=== PATIENT | female | born 1990 | race Caucasian/White ===

== ENCOUNTER 2016-10-28 22:07 | Emergency (ER) | payer MEDICAID ==
[2016-10-28] MEDS ORDERED: Sodium Chloride 0.9% 1,000 ML IV ONE (22:36)
[2016-10-28] MEDS ORDERED: Ondansetron 4 MG/2 ML SDV IVPUSH ONE (22:36)
[2016-10-28] MEDS ORDERED: Ketorolac 30 MG/ML SDV IVPUSH ONE (22:37)
--- NOTE | 2016-10-28 22:37 | EDM.PDOC ---
ED HPI GENERAL MEDICAL PROBLEM - General Chief Complaint: Abdominal Pain Stated Complaint: GALLBLADDER ISSUES Time Seen by Provider: 10/28/16 22:36 Source of Information: Reports: Patient - History of Present Illness INITIAL COMMENTS - FREE TEXT/NARRATIVE: HISTORY AND PHYSICAL: History of present illness: []Patient has a history of biliary colic and cholelithiasis over the last 3 years waxing and waning first diagnosed while she was hence she did not have the procedure performed she was intermittently not having symptoms after and elected to forego procedure. In the interim she has been off and on insurances and has elected to not go forward with procedure/cholecystectomy due to financial. Currently she is unaware of her insurance status she thinks she may be just about get on insurance and may even be covered at this time however she is having some right upper quadrant pain nausea she rates 7 out of 10 sometimes radiating between to back and epigastrium No fever vomiting chills sweats no chest pain shortness breath headache dizziness palpitation no bowel or urine symptoms Review of systems: As per history of present illness and below otherwise all systems reviewed and negative. Past medical history: As per history of present illness and as reviewed below otherwise noncontributory. Surgical history: As per history of present illness and as reviewed below otherwise noncontributory. Social history: No reported history of drug or alcohol abuse. Family history: As per history of present illness and as reviewed below otherwise noncontributory. Physical exam: HEENT: Atraumatic, normocephalic, pupils reactive, negative for conjunctival pallor or scleral icterus, mucous membranes moist, throat clear, neck supple, nontender, trachea midline. Lungs: Clear to auscultation, breath sounds equal bilaterally, chest nontender. Heart: S1S2, regular, negative for clicks, rubs, or JVD. Abdomen: Soft, nondistended, nontender on the left on right she is tender with deep palpation both right upper and lower quadrant no guarding or rebound. Negative for masses or hepatosplenomegaly. Negative for costovertebral tenderness. Pelvis: Stable nontender. Genitourinary: Deferred. Rectal: Deferred. Extremities: Atraumatic, negative for cords or calf pain. Neurovascular unremarkable. Neuro: Awake, alert, oriented. Cranial nerves II through XII unremarkable. Cerebellum unremarkable. Motor and sensory unremarkable throughout. Exam nonfocal. Diagnostics: []Lab as below CT abdomen pelvis with contrast Patient refused ultrasound of was considered per radiology recommendation to rule out a hydrosalpinx Therapeutics: []1 L normal saline bolus Zofran 8 mg IV Toradol 30 mg IV Morphine 2 mg IV [place] 5 per 325 one by mouth every 6 when necessary #30 no refill Zofran 8 mg ODT every 8 when necessary nausea vomiting Patient refused ultrasound a real out hydrosalpinx per radiology recommendation Follow-up with general surgery Impression: []Biliary colic Cholelithiasis Definitive disposition and diagnosis as appropriate pending reevaluation and review of above. abdominal Pain Score (Numeric/FACES): 8 - Related Data Allergies Allergy/AdvReac Type Severity Reaction Status Date / Time No Known Allergies Allergy Verified 10/28/16 22:34 Home Meds: Home Meds . [No Known Home Meds] 10/28/16 [History] ED ROS GENERAL - Review of Systems Review Of Systems: ROS reveals no pertinent complaints other than HPI. ED EXAM, GENERAL - Physical Exam Exam: See Below Course - Vital Signs Last Recorded V/S: Last Vital Signs Temp 36.6 C 10/28/16 22:35 Pulse 67 10/28/16 22:35 Resp 18 10/28/16 22:35 BP 117/80 10/28/16 22:35 Pulse Ox 96 10/28/16 22:35 - Orders/Labs/Meds Orders: Active Orders 24 hr Category Date Time Status Abdomen Pelvis w Cont [CT] Stat Exams 10/28/16 22:54 Taken Labs: Laboratory Tests 10/28/16 10/28/16 10/28/16 Range/Units 22:41 22:41 22:50 WBC 9.41 (4.0-11.0) K/uL RBC 4.92 (4.30-5.90) M/uL Hgb 14.1 (12.0-16.0) g/dL Hct 40.8 (36.0-46.0) % MCV 82.9 (80.0-98.0) fL MCH 28.7 (27.0-32.0) pg MCHC 34.6 (31.0-37.0) g/dL RDW Std Deviation 39.7 (28.0-62.0) fl RDW Coeff of Marleni 13 (11.0-15.0) % Plt Count 246 (150-400) K/uL MPV 9.90 (7.40-12.00) fL Neut % (Auto) 54.6 (48.0-80.0) % Lymph % (Auto) 38.0 (16.0-40.0) % [place] % (Auto) 5.5 (0.0-15.0) % Eos % (Auto) 1.7 (0.0-7.0) % Baso % (Auto) 0.2 (0.0-1.5) % Neut # (Auto) 5.1 (1.4-5.7) K/uL Lymph # (Auto) 3.6 H (0.6-2.4) K/uL [place] # (Auto) 0.5 (0.0-0.8) K/uL Eos # (Auto) 0.2 (0.0-0.7) K/uL Baso # (Auto) 0.0 (0.0-0.1) K/uL Nucleated RBC % 0.0 /100WBC Nucleated RBCs # 0 K/uL Sodium (136-146) mmol/L Potassium (3.5-5.1) mmol/L Chloride (98-110) mmol/L Carbon Dioxide (21-31) mmol/L BUN (6.0-23.0) mg/dL Creatinine (0.6-1.5) mg/dL Est Cr Clr Drug Dosing mL/min Estimated GFR (MDRD) ml/min Glucose (60-110) mg/dL Calcium (8.8-10.8) mg/dL Total Bilirubin (0.1-1.5) mg/dL AST (5-40) IU/L ALT (8-54) IU/L Alkaline Phosphatase (40-150) Total Protein (6.0-8.0) g/dL Albumin (3.5-5.0) g/dL Globulin (2.0-3.5) g/dL Albumin/Globulin Ratio (1.3-2.8) Amylase (10-90) U/L Lipase (7-80) U/L Urine Color YELLOW Urine Appearance HAZY Urine pH 6.0 (5.0-8.0) Ur Specific [place] 1.010 (1.001-1.035) Urine Protein NEGATIVE (NEGATIVE) mg/dL Urine Glucose (UA) NEGATIVE (NEGATIVE) mg/dL Urine Ketones NEGATIVE (NEGATIVE) mg/dL Urine Occult Blood TRACE-INTACT (NEGATIVE) Urine Nitrite NEGATIVE (NEGATIVE) Urine Bilirubin NEGATIVE (NEGATIVE) Urine Urobilinogen 0.2 (<2.0) EU/dL Ur Leukocyte Esterase TRACE (NEGATIVE) Urine RBC 0-2 (0-2/HPF) Urine WBC 0-3 (0-5/HPF) Ur Epithelial Cells FEW (NONE-FEW) Urine Bacteria FEW (NEGATIVE) Urine HCG, Qual NEGATIVE (NEGATIVE) 10/28/16 Range/Units 22:50 WBC (4.0-11.0) K/uL RBC (4.30-5.90) M/uL Hgb (12.0-16.0) g/dL Hct (36.0-46.0) % MCV (80.0-98.0) fL MCH (27.0-32.0) pg MCHC (31.0-37.0) g/dL RDW Std Deviation (28.0-62.0) fl RDW Coeff of Marleni (11.0-15.0) % Plt Count (150-400) K/uL MPV (7.40-12.00) fL Neut % (Auto) (48.0-80.0) % Lymph % (Auto) (16.0-40.0) % [place] % (Auto) (0.0-15.0) % Eos % (Auto) (0.0-7.0) % Baso % (Auto) (0.0-1.5) % Neut # (Auto) (1.4-5.7) K/uL Lymph # (Auto) (0.6-2.4) K/uL [place] # (Auto) (0.0-0.8) K/uL Eos # (Auto) (0.0-0.7) K/uL Baso # (Auto) (0.0-0.1) K/uL Nucleated RBC % /100WBC Nucleated RBCs # K/uL Sodium 136 (136-146) mmol/L Potassium 4.3 (3.5-5.1) mmol/L Chloride 103 (98-110) mmol/L Carbon Dioxide 23 (21-31) mmol/L BUN 14 (6.0-23.0) mg/dL Creatinine 0.7 (0.6-1.5) mg/dL Est Cr Clr Drug Dosing 130.54 mL/min Estimated GFR (MDRD) > 60.0 ml/min Glucose 91 (60-110) mg/dL Calcium 9.8 (8.8-10.8) mg/dL Total Bilirubin 0.3 (0.1-1.5) mg/dL AST 22 (5-40) IU/L ALT 25 (8-54) IU/L Alkaline Phosphatase 86 (40-150) Total Protein 7.8 (6.0-8.0) g/dL Albumin 4.4 (3.5-5.0) g/dL Globulin 3.4 (2.0-3.5) g/dL Albumin/Globulin Ratio 1.3 (1.3-2.8) Amylase 77 (10-90) U/L Lipase 44 (7-80) U/L Urine Color Urine Appearance Urine pH (5.0-8.0) Ur Specific [place] (1.001-1.035) Urine Protein (NEGATIVE) mg/dL Urine Glucose (UA) (NEGATIVE) mg/dL Urine Ketones (NEGATIVE) mg/dL Urine Occult Blood (NEGATIVE) Urine Nitrite (NEGATIVE) Urine Bilirubin (NEGATIVE) Urine Urobilinogen (<2.0) EU/dL Ur Leukocyte Esterase (NEGATIVE) Urine RBC (0-2/HPF) Urine WBC (0-5/HPF) Ur Epithelial Cells (NONE-FEW) Urine Bacteria (NEGATIVE) Urine HCG, Qual (NEGATIVE) Meds: Medications Discontinued Medications Generic Name Dose Route Start Last Admin Trade Name Freq PRN Reason Stop Dose Admin Sodium Chloride 1,000 mls @ 999 mls/hr 10/28/16 22:36 10/28/16 22:59 Normal Saline IV 10/28/16 23:36 999 mls/hr STAT ONE Administration Ceftriaxone Sodium/Dextrose 1 50 mls @ 100 mls/hr 10/28/16 23:45 10/29/16 00: 06 gm/ Premix IV 10/29/16 00:14 100 mls/hr ONETIME ONE Administration Iopamidol 100 ml 10/28/16 22:58 10/28/16 22:59 Isovue Multipack-370 (76%) IVPUSH 10/28/16 22:59 100 ml ONETIME STA Administration Ketorolac Tromethamine 30 mg 08/31/17 22:37 10/28/16 23:00 Toradol IVPUSH 10/28/16 22:38 30 mg ONETIME ONE Administration Morphine Sulfate 2 mg 10/29/16 00:48 Morphine IV 10/29/16 00:49 ONETIME ONE Ondansetron HCl 8 mg 10/28/16 22:36 10/28/16 22:59 Zofran IVPUSH 10/28/16 22:37 8 mg ONETIME ONE Administration Departure - Departure Time of Disposition: 00:52 Disposition: Home, Self-Care 01 Condition: Good Clinical Impression: Biliary colic - Discharge Information Referrals: PCP,None [Primary Care Provider] - Forms: ED Department Discharge Additional Instructions: Again radiology is recommended ultrasound to rule out a fluid filled fallopian tube, as he did not wish to pursue this tonight if symptoms persist or worsen he may follow-up with gynecology for ultrasound with primary care, again you can always return to emergency room for further evaluation Return if symptoms persist or worsen or fever chills sweats should they develop Follow-up with general surgery next week [facility] [place]Note 2[place] - General Surgery Professional Building [address] [place] [address], [address] [place] [address] [facility] [address] [place] [address] [id number] [facility] [address] [place] [id number] The following information is given to patients seen in the emergency department who are being discharged to home. This information is to outline your options for follow-up care. We provide all patients seen in our emergency department with a follow-up referral. The need for follow-up, as well as the timing and circumstances, are variable depending upon the specifics of your emergency department visit. If you don't have a primary care physician on staff, we will provide you with a referral. We always advise you to contact your personal physician following an emergency department visit to inform them of the circumstance of the visit and for follow-up with them and/or the need for any referrals to a consulting specialist. The emergency department will also refer you to a specialist when appropriate. This referral assures that you have the opportunity for follow-up care with a specialist. All of these measure are taken in an effort to provide you with optimal care, which includes your follow-up. Under all circumstances we always encourage you to contact your private physician who remains a resource for coordinating your care. When calling for follow-up care, please make the office aware that this follow-up is from your recent emergency room visit. If for any reason you are refused follow-up, please contact the [facility] emergency department at and asked to speak to the emergency department charge nurse. - My Orders Last 24 Hours: My Active Orders 10/28/16 22:54 Abdomen Pelvis w Cont [CT] Stat - Assessment/Plan Last 24 Hours: My Active Orders 10/28/16 22:54 Abdomen Pelvis w Cont [CT] Stat
[2016-10-28] MEDS ORDERED: Iopamidol 755 MG/ML 500 ML Multipack Bottle IVPUSH STA (22:58)
[2016-10-28 23:33] LABS: CHLORIDE,CL 103 mmol/L (98-110); SODIUM,NA 136 mmol/L (136-146)
[2016-10-28] MEDS ORDERED: cefTRIAXone 1 GM in Premix Bag 1 BAG IV ONE (23:45)
[2016-10-29] MEDS ORDERED: Morphine 10 MG/ML Syringe IV ONE (00:48)
[2016-10-29 04:08] VITALS: BP 114/79
--- NOTE | 2016-10-29 09:42 | CT ---
EXAM DATE: 10/28/16 PATIENT'S AGE: 26 Patient: TAL DELGADO Facility: [place], [place] Site . Site : 1990 Study: CT Abdomen/Pelvis [id number]/1/2017 12:04:54 AM Ordering Physician: mel Final Report: INDICATION: Right lower quadrant pain TECHNIQUE: CT abdomen and pelvis acquired with IV contrast. COMPARISON: None available FINDINGS: Lower chest: Unremarkable. Liver: Unremarkable. Spleen: Unremarkable. Pancreas: Unremarkable. Gallbladder and bile ducts: Cholelithiasis. Adrenal glands: Unremarkable. Kidneys: No hydronephrosis. A small density in the left renal pelvis on image 51 may be related to contrast excretion or 80 small nonobstructing calcification. GI tract: Unremarkable. Appendix is normal. Vascular structures: Unremarkable. Lymph nodes: Unremarkable. Miscellaneous: No free air or significant free fluid. A small fat containing umbilical hernia. Pelvic Organs: No discrete uterine abnormality seen. An ovoid/tubular low attenuation structure in the right adnexa measuring up to 6.4 x 2.6 x 3.3 centimeters. Irregular areas of increased attenuation in the urinary bladder are probably related to excreted contrast. Bones: Unremarkable for age. IMPRESSION: No evidence of appendicitis, diverticulitis or bowel obstruction. An ovoid/tubular right adnexal low density structure concerning for hydrosalpinx. Recommend sonographic evaluation. Cholelithiasis. Dictated by Marc Epps MD @ 10/29/2016 12:19:10 AM Dictated by: Marc Epps MD @ 10/29/2016 00:19:15 (Electronic Signature) Report Signed by Proxy. ROSHAN
== END 2016-10-29 01:23 | disposition home or self-care (01) ==
LOC: MW.ED 22:07
DX: K80.70 Calculus of gallbladder and bile duct without cholecystitis without obstruction (principal)
CPT/HCPCS: 74177; 80053; 81001; 81025; 82150; 83690; 85025; 96361; 96365; 96375; 99284; J0696; J1885; J2270; J2405; J7040; Q9967; 99283

== ENCOUNTER 2017-02-25 12:53 | Observation (INO) | payer SELFPAY ==
--- NOTE | 2017-02-25 13:25 | EDM.PDOC ---
ED HPI GENERAL MEDICAL PROBLEM - General Chief Complaint: General Stated Complaint: LOWER ABD PAIN Time Seen by Provider: 02/25/17 13:25 Source of Information: Reports: Patient - History of Present Illness INITIAL COMMENTS - FREE TEXT/NARRATIVE: HISTORY AND PHYSICAL: History of present illness: [ Patient presents with low abdominal pain that awoke her from sleep this morning she's vomited several times as well as several loose stools she complains of 8 out of 10 low abdomen pain No chest pain shortness breath headache dizziness palpitation no urine symptoms ] Review of systems: As per history of present illness and below otherwise all systems reviewed and negative. Past medical history: As per history of present illness and as reviewed below otherwise noncontributory. Surgical history: As per history of present illness and as reviewed below otherwise noncontributory. Social history: No reported history of drug or alcohol abuse. Family history: As per history of present illness and as reviewed below otherwise noncontributory. Physical exam: HEENT: Atraumatic, normocephalic, pupils reactive, negative for conjunctival pallor or scleral icterus, mucous membranes moist, throat clear, neck supple, nontender, trachea midline. Lungs: Clear to auscultation, breath sounds equal bilaterally, chest nontender. Heart: S1S2, regular, negative for clicks, rubs, or JVD. Abdomen: Soft, nondistended, tender in the right lower quadrant with mild guarding. Negative for masses or hepatosplenomegaly. Negative for costovertebral tenderness. Pelvis: Stable nontender. Genitourinary: Deferred. Rectal: Deferred. Extremities: Atraumatic, negative for cords or calf pain. Neurovascular unremarkable. Neuro: Awake, alert, oriented. Cranial nerves II through XII unremarkable. Cerebellum unremarkable. Motor and sensory unremarkable throughout. Exam nonfocal. Diagnostics: [CBC CMP UA CT abdomen pelvis with contrast Ultrasound pelvis ] Therapeutics: [1 L normal saline bolus Zofran 8 mg IV Toradol 30 mg IV ms 2 mg IV ] Discussed with Dr. DUPREE and she will be admitting she would like Start 2 g of Rocephin IV as well as doxycycline 100 mg by mouth she will be in to the emergency room see the patient and is expecting disposition to the floor for admission Impression: Right tubo-ovarian abscess []Abdomina/pelvic pain Right adnexal low-attenuation structure on CT vomiting Definitive disposition and diagnosis as appropriate pending reevaluation and review of above. - Related Data Allergies Allergy/AdvReac Type Severity Reaction Status Date / Time No Known Allergies Allergy Verified 02/25/17 13:42 Home Meds: Home Meds . 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: Musculoskeletal History: Reports: None Neurological History: Reports: None Psychiatric History: Reports: None Endocrine/Metabolic History: Reports: None Hematologic History: Reports: None Oncologic (Cancer) History: Reports: None Dermatologic History: Reports: None - Infectious Disease History Infectious Disease History: Reports: Chicken Pox - Past Surgical History Musculoskeletal Surgical History: Reports: None Social & Family History - Family History Family Medical History: Noncontributory - Tobacco Use Smoking Status *Q: Current Every Day Smoker Years of Tobacco use: 4 Packs/Tins Daily: 0.1 - Recreational Drug Use Recreational Drug Use: No ED ROS GENERAL - Review of Systems Review Of Systems: ROS reveals no pertinent complaints other than HPI. ED EXAM, GENERAL - Physical Exam Exam: See Below Course - Vital Signs Last Recorded V/S: Last Vital Signs Temp 99.4 F 02/25/17 13:43 Pulse 113 H 02/25/17 13:43 Resp 18 02/25/17 13:43 BP 118/82 02/25/17 13:43 Pulse Ox 99 02/25/17 13:43 - Orders/Labs/Meds Orders: Active Orders 24 hr Category Date Time Status CULTURE URINE [RM] Stat Lab 02/25/17 13:56 Received Doxycycline [Vibramycin] Med 02/25/17 17:18 Once 100 mg PO ONETIME ONE cefTRIAXone [Rocephin in Dextrose,Iso-Osm 2 GM/50 ML] 2 Med 02/25/17 17:17 Ordered gm Premix Bag 1 bag IV ONETIME Medication Orders Ceftriaxone Sodium/Dextrose 2 (gm/ Premix) 50 mls @ 100 mls/hr IV ONETIME ONE Stop: 02/25/17 17:46 Labs: Laboratory Tests 02/25/17 02/25/17 02/25/17 Range/Units 13:35 13:35 13:56 WBC 21.47 H (4.0-11.0) K/uL RBC 5.08 (4.30-5.90) M/uL Hgb 14.2 (12.0-16.0) g/dL Hct 42.0 (36.0-46.0) % MCV 82.7 (80.0-98.0) fL MCH 28.0 (27.0-32.0) pg MCHC 33.8 (31.0-37.0) g/dL RDW Std Deviation 39.1 (28.0-62.0) fl RDW Coeff of Marleni 13 (11.0-15.0) % Plt Count 258 (150-400) K/uL MPV 10.10 (7.40-12.00) fL Neut % (Auto) 91.9 H (48.0-80.0) % Lymph % (Auto) 4.2 L (16.0-40.0) % Story % (Auto) 3.7 (0.0-15.0) % Eos % (Auto) 0.1 (0.0-7.0) % Baso % (Auto) 0.1 (0.0-1.5) % Neut # (Auto) 19.7 H (1.4-5.7) K/uL Lymph # (Auto) 0.9 (0.6-2.4) K/uL Story # (Auto) 0.8 (0.0-0.8) K/uL Eos # (Auto) 0.0 (0.0-0.7) K/uL Baso # (Auto) 0.0 (0.0-0.1) K/uL Nucleated RBC % 0.0 /100WBC Nucleated RBCs # 0 K/uL Sodium 136 (136-146) mmol/L Potassium 4.4 (3.5-5.1) mmol/L Chloride 102 (98-110) mmol/L Carbon Dioxide 22 (21-31) mmol/L BUN 6 (6.0-23.0) mg/dL Creatinine 0.7 (0.6-1.5) mg/dL Est Cr Clr Drug Dosing 117.39 mL/min Estimated GFR (MDRD) > 60.0 ml/min Glucose 108 (60-110) mg/dL Calcium 9.6 (8.8-10.8) mg/dL Total Bilirubin 0.4 (0.1-1.5) mg/dL AST 23 (5-40) IU/L ALT 26 (8-54) IU/L Alkaline Phosphatase 90 (40-150) Total Protein 8.1 H (6.0-8.0) g/dL Albumin 4.4 (3.5-5.0) g/dL Globulin 3.7 H (2.0-3.5) g/dL Albumin/Globulin Ratio 1.2 L (1.3-2.8) Amylase 84 (10-90) U/L Lipase 92 H (7-80) U/L Urine Color Urine Appearance Urine pH (5.0-8.0) Ur Specific [place] (1.001-1.035) Urine Protein (NEGATIVE) mg/dL Urine Glucose (UA) (NEGATIVE) mg/dL Urine Ketones (NEGATIVE) mg/dL Urine Occult Blood (NEGATIVE) Urine Nitrite (NEGATIVE) Urine Bilirubin (NEGATIVE) Urine Urobilinogen (<2.0) EU/dL Ur Leukocyte Esterase (NEGATIVE) Urine RBC (0-2/HPF) Urine WBC (0-5/HPF) Ur Epithelial Cells (NONE-FEW) Urine Bacteria (NEGATIVE) Urine Mucus (NONE-MOD) Urine HCG, Qual NEGATIVE (NEGATIVE) 02/25/17 Range/Units 13:56 WBC (4.0-11.0) K/uL RBC (4.30-5.90) M/uL Hgb (12.0-16.0) g/dL Hct (36.0-46.0) % MCV (80.0-98.0) fL MCH (27.0-32.0) pg MCHC (31.0-37.0) g/dL RDW Std Deviation (28.0-62.0) fl RDW Coeff of Marleni (11.0-15.0) % Plt Count (150-400) K/uL MPV (7.40-12.00) fL Neut % (Auto) (48.0-80.0) % Lymph % (Auto) (16.0-40.0) % Story % (Auto) (0.0-15.0) % Eos % (Auto) (0.0-7.0) % Baso % (Auto) (0.0-1.5) % Neut # (Auto) (1.4-5.7) K/uL Lymph # (Auto) (0.6-2.4) K/uL Story # (Auto) (0.0-0.8) K/uL Eos # (Auto) (0.0-0.7) K/uL Baso # (Auto) (0.0-0.1) K/uL Nucleated RBC % /100WBC Nucleated RBCs # K/uL Sodium (136-146) mmol/L Potassium (3.5-5.1) mmol/L Chloride (98-110) mmol/L Carbon Dioxide (21-31) mmol/L BUN (6.0-23.0) mg/dL Creatinine (0.6-1.5) mg/dL Est Cr Clr Drug Dosing mL/min Estimated GFR (MDRD) ml/min Glucose (60-110) mg/dL Calcium (8.8-10.8) mg/dL Total Bilirubin (0.1-1.5) mg/dL AST (5-40) IU/L ALT (8-54) IU/L Alkaline Phosphatase (40-150) Total Protein (6.0-8.0) g/dL Albumin (3.5-5.0) g/dL Globulin (2.0-3.5) g/dL Albumin/Globulin Ratio (1.3-2.8) Amylase (10-90) U/L Lipase (7-80) U/L Urine Color YELLOW Urine Appearance SLT CLOUDY Urine pH 8.0 (5.0-8.0) Ur Specific [place] 1.020 (1.001-1.035) Urine Protein NEGATIVE (NEGATIVE) mg/dL Urine Glucose (UA) NEGATIVE (NEGATIVE) mg/dL Urine Ketones NEGATIVE (NEGATIVE) mg/dL Urine Occult Blood NEGATIVE (NEGATIVE) Urine Nitrite NEGATIVE (NEGATIVE) Urine Bilirubin NEGATIVE (NEGATIVE) Urine Urobilinogen 0.2 (<2.0) EU/dL Ur Leukocyte Esterase SMALL (NEGATIVE) Urine RBC 0-1 (0-2/HPF) Urine WBC 0-2 (0-5/HPF) Ur Epithelial Cells FEW (NONE-FEW) Urine Bacteria 1+ H (NEGATIVE) Urine Mucus LIGHT (NONE-MOD) Urine HCG, Qual (NEGATIVE) Meds: Medications Generic Name Dose Route Start Last Admin Trade Name Freq PRN Reason Stop Dose Admin Ceftriaxone Sodium/Dextrose 2 50 mls @ 100 mls/hr 02/25/17 17:17 gm/ Premix IV 02/25/17 17:46 ONETIME ONE Discontinued Medications Generic Name Dose Route Start Last Admin Trade Name Manny PRN Reason Stop Dose Admin Sodium Chloride 1,000 mls @ 999 mls/hr 02/25/17 13:26 02/25/17 13:57 Normal Saline IV 02/25/17 14:26 999 mls/hr STAT ONE Administration Iopamidol 100 ml 02/25/17 14:43 02/25/17 14:44 Isovue Multipack-370 (76%) IVPUSH 02/25/17 14:44 100 ml ONETIME STA Administration Ketorolac Tromethamine 30 mg 02/25/17 14:41 02/25/17 14:56 Toradol IVPUSH 02/25/17 14:42 30 mg ONETIME ONE Administration Morphine Sulfate 2 mg 02/25/17 16:19 02/25/17 17:00 Morphine IVPUSH 02/25/17 16:20 2 mg ONETIME ONE Administration Ondansetron HCl 8 mg 02/25/17 13:54 02/25/17 13:59 Zofran IVPUSH 02/25/17 13:55 8 mg ONETIME ONE Administration Departure - Departure Time of Disposition: 17:19 Disposition: Admitted As Inpatient 65 Condition: Poor Clinical Impression: Ovarian abscess - Discharge Information Referrals: PCP,None [Primary Care Provider] - Forms: ED Department Discharge - My Orders Last 24 Hours: My Active Orders 02/25/17 13:56 CULTURE URINE [RM] Stat 02/25/17 17:17 cefTRIAXone [Rocephin in Dextrose,Iso-Osm 2 GM/50 ML] 2 gm Premix Bag 1 bag IV ONETIME 02/25/17 17:18 Doxycycline [Vibramycin] 100 mg PO ONETIME ONE - Assessment/Plan Last 24 Hours: My Active Orders 02/25/17 13:56 CULTURE URINE [RM] Stat 02/25/17 17:17 cefTRIAXone [Rocephin in Dextrose,Iso-Osm 2 GM/50 ML] 2 gm Premix Bag 1 bag IV ONETIME 02/25/17 17:18 Doxycycline [Vibramycin] 100 mg PO ONETIME ONE
[2017-02-25] MEDS ORDERED: Sodium Chloride 0.9% 1,000 ML IV ONE (13:26)
[2017-02-25] MEDS ORDERED: Ondansetron 4 MG/2 ML SDV IVPUSH ONE (13:54)
[2017-02-25 14:08] LABS: CHLORIDE,CL 102 mmol/L (98-110); SODIUM,NA 136 mmol/L (136-146)
[2017-02-25] MEDS ORDERED: Ketorolac 30 MG/ML SDV IVPUSH ONE (14:41)
[2017-02-25] MEDS ORDERED: Iopamidol 755 MG/ML 500 ML Multipack Bottle IVPUSH STA (14:43)
[2017-02-25] MEDS ORDERED: Morphine 2 MG/ML Syringe IVPUSH ONE (16:19)
--- NOTE | 2017-02-25 17:05 | CT ---
EXAM DATE: 02/25/17 PATIENT'S AGE: 26 Patient: TAL DELGADO Facility: [place], [place] Site . Site : 1990 Study: CT Abdomen/Pelvis W CONT [id number]/2017 2:46:24 PM Ordering Physician: Tobi Bonner Final Report: INDICATION: Nausea, vomiting and diarrhea. Body aches. Lower abdominal pain. TECHNIQUE: CT abdomen and pelvis acquired with IV contrast. . COMPARISON: CT 10/28/2016. FINDINGS: Lower chest: Unremarkable. Liver: Unremarkable. Spleen: Normal. There is a splenule. Pancreas: Unremarkable. Gallbladder and bile ducts: There is cholelithiasis. Kidneys: Unremarkable. Adrenal glands: Unremarkable. GI tract: No bowel wall thickening or dilatation. No pericolonic inflammatory stranding. Appendix is normal. Vascular structures: No sign of aneurysm. Lymph nodes: Unremarkable. Miscellaneous: No ascites. No free air. Pelvic Organs: The right ovary is asymmetrically enlarged relative to the left. Ovoid/tubular low density structure in the right adnexal region is again identified. Bones: No acute abnormality. No suspicious bone lesion. IMPRESSION: 1. No acute bowel abnormality. The appendix is normal. 2. The right ovary is asymmetrically enlarged relative to the left. Ovoid/ tubular low density structure in the right adnexal region is again identified. This may represent hydrosalpinx. Parovarian cystic lesion could also have this appearance. Recommend pelvic ultrasound. 3. Cholelithiasis. Please note that all CT scans at this facility use dose modulation, iterative reconstruction, and/or weight-based dosing when appropriate to reduce radiation dose to as low as reasonably achievable. Dictated by Vega Hurtado MD @ Feb 25 2017 3:00PM (Electronic Signature) Report Signed by Proxy. [facility] CAN[facility] CENTERDion
--- NOTE | 2017-02-25 17:12 | US ---
EXAM DATE: 02/25/17 PATIENT'S AGE: 26 Patient: TAL DELGADO Facility: [place], [place] Site . Site : 1990 Study: US Pelvis [id number] 3:48:32 PM Ordering Physician: Tobi Bonner Final Report: INDICATION: Pain TECHNIQUE: Multiple transvaginal sonographic images of the pelvis. COMPARISON: A CT scan from the same date FINDINGS: Uterus: 8.5 x 4.0 x 5.2 cm. Normal echotexture of the myometrium. No masses. A cervical nabothian cyst. Endometrium: 5 mm in thickness. No sign of endometrial mass or fluid. Right ovary: 2.9 x 3.1 x 2.6 cm. A complex 2.6 x 2.1 x 2.5 centimeter right ovarian cyst containing irregular internal echogenic areas. A 4.0 x 3.8 centimeter heterogeneous mixed echogenicity right adnexal structure containing foci of Doppler flow. Tubular configuration of portions of this structure. Normal arterial and venous blood flow. Left ovary: 2.7 x 3.8 x 2.9 cm. No ovarian or adnexal masses. Normal arterial and venous blood flow. Cul-de-sac: Small free fluid. IMPRESSION: A complex mixed echogenicity right adnexal structure, portions of which demonstrates tubular configuration. This could represent pyosalpinx/tubo- ovarian abscess or hemosalpinx, versus neoplasm. A complex right ovarian cyst which could represent a hemorrhagic cyst. Recommend further gynecological evaluation and a 6 week followup examination. If indicated, correlate with MRI. Dictated by Marc Epps MD @ 02/25/2017 4:20:06 PM Dictated by: Marc Epps MD @ 02/25/2017 16:21:44 (Electronic Signature) Report Signed by Proxy. ROSHAN
[2017-02-25] MEDS ORDERED: cefTRIAXone 2 GM in Premix Bag 1 BAG IV ONE (17:17)
[2017-02-25] MEDS ORDERED: Doxycycline 100 MG Cap PO ONE (17:18)
[2017-02-25] MEDS ORDERED: Acetaminophen 325 MG Tab PO PRN (20:59)
[2017-02-25] MEDS ORDERED: Ondansetron 4 MG Tab.DIS PO PRN (20:59)
[2017-02-25] MEDS: Ibuprofen 800 MG Tab PO SCH (21:27)
[2017-02-25] MEDS: metroNIDAZOLE 250 MG Tab PO SCH (21:43)
--- NOTE | 2017-02-26 03:33 | HP ---
DATE OF : 1990 PRIMARY CARE PHYSICIAN: None PCP PRESENTING COMPLAINT: Lower abdominal pain. HISTORY: A 26-year-old lady presented to the ER this afternoon with a history of sudden- onset sharp severe lower abdominal pain associated with nausea and vomiting. When she was evaluated in the ER, she was found to be in severe pain and received Toradol which was not helpful, followed by morphine which was effective also Zofran for the nausea and vomiting. She then had a CT scan, which showed a possible dilated complex tubular structure in the right adnexa.This was followed by an ultrasound which showed a complex tubular structure in the right adnexa with increased Doppler flow. Appearance consistent with either a hematosalpinx or a tuboovarian abscess. Her test was negative with WBC of over 21,000. After discussing with the ER physician,she received Rocephin 2g and Doxycycline 100mg- treatment for severe PID. When I evaluated her on the floor, she reported that the pain woke her up from sleep but that she had intermittent mild lower abdominal pain about 4-5days prior to her presenting to the ER. The pain is exacerbated with movement. Denied fever but reported that she felt chilly and unwell most of the day. In a monogamous relationship with history of unprotected sex with the same partner for the last 3 years.Denies abnormal vaginal discharge or dyspareunia. LMP was 02/15 , regular cycles Denied urinary symptoms or change in bowel habits. Apart from positive HPV over 4 years ago, she denies having history of any STDs. REVIEW OF SYSTEMS: As above. PAST MEDICAL HISTORY: Cholelithiasis. GYNECOLOGICAL HISTORY: Regular cycles every 28 to 30 days. Nonpainful, moderate flow, lasting about 5 days. Currently, sexually active, unprotected sex. No control. Abnormal Pap smear, LGSIL in 2014. OBSTETRIC HISTORY: Spontaneous vaginal delivery in 2014. SOCIAL HISTORY: Smoker. Smokes about 6 cigarettes a day. Occasional use of marijuana and also social alcohol use. SURGICAL HISTORY: None. FAMILY HISTORY: Noncontributory. PHYSICAL EXAMINATION: GENERAL: Well-developed female, looks to be in some discomfort VITAL SIGNS: Temp: 37.6, HI: 95, BP: 101/65, RR: 16, Oxygen Sats on room air 95 %. CHEST: Clear to auscultation bilaterally. CVS: S1 and S2. No murmurs. ABDOMEN: Soft. Generalized tenderness lower abdominal region with voluntary guarding. Mild rebound tenderness even distraction. PELVIC: Well-developed female. No lesions on the external genital. Speculum examination revealed a moderate amount of creamy vaginal discharge. Normal- sized mobile anteverted uterus on bimanual examination. Positive cervical motion tenderness and bilateral adnexal tenderness worse on the right side with fullness in the right adnexa. Gen-Probe and Wet hillary swabs were collected. LAB RESULTS: CBC: WBC -21.47, with 91% neutrophils on differentials,Hemoglobin/hematocrit 14.2/ 42 and Platelets of 258. CMP: Normal. Normal Amylase normal with elevated Amylase at 92. Urine: (+) Leukocyte esterase. Urine culture pending Urine HCG negative. IMAGING: CT with contrast showed an overt/tubular low-density structure in the right adnexa region which could represent a hydrosalpinx. Otherwise, no acute bowel abnormality was noted and the appendix was reported as normal. Pelvic ultrasound showed a normal anteverted uterus with normal endometrial thickness of 5 mm. The right ovary had a 2.6 cm cyst, which in appearance was consistent with hemorrhagic cyst. There was a 4 x 3.8 cm heterogeneously mixed echogenic tubular structure in the right adnexa with increased focal Doppler flow. There was a small amount of fluid in the cul- de-sac. Appearance of the right adnexal tubular structure could represent a hematosalpinx, pyosalpinx or a tuboovarian abscess. ASSESSMENT AND PLAN: A 26-year-old lady with a sudden onset lower abdominal pain, with suspected PID and possible right tuboovarian abscess. We will keep patient for parenteral antibiotics, second generation cephalosporin plus doxycycline for at least the next 24 hours. Depending on her clinical picture, she would be discharged home with oral doxycycline to complete a 14 days course with a plan to follow up in the clinic. I had an extensive discussion with the patient regarding my impression and management plan and she voiced understanding. Would repeat her CBC in the morning. EMELINAUMVIV / MODL /[id number] ROSHAN
[2017-02-26] MEDS: Ibuprofen 800 MG Tab PO SCH ×4 (03:46→21:11)
[2017-02-26] MEDS: cefOXitin 2 GM in Premix Bag 1 BAG IV SCH ×3 (06:03→18:43)
[2017-02-26] MEDS: Doxycycline 100 MG Cap PO SCH ×3 (06:04→21:12)
[2017-02-26] MEDS: metroNIDAZOLE 250 MG Tab PO SCH ×2 (10:00→21:11)
--- NOTE | 2017-02-26 11:35 | PCM.PN ---
- General Info Date of Service: 02/26/17 Functional Status: Reports: Pain Controlled, Ambulating, Urinating. Denies: Tolerating Diet (an episode of nausea with vomiting this am after metronidazole) Pain Score: 3 (feeling much better compared to last evening) - Review of Systems General: Denies: Fever, Malaise, Chills HEENT: Denies: Headaches Pulmonary: Denies: Shortness of Breath, Pleuritic Chest Pain Cardiovascular: Denies: Chest Pain, Palpitations Gastrointestinal: Reports: Abdominal Pain (mild) Genitourinary: Denies: Dysuria, Urgency Musculoskeletal: Reports: No Symptoms Skin: Reports: No Symptoms Neurological: Reports: No Symptoms Psychiatric: Reports: No Symptoms - Patient Data Vitals - Most Recent: Last Vital Signs Temp 36.2 C 02/26/17 08:00 Pulse 61 02/26/17 08:00 Resp 20 02/26/17 08:00 BP 115/76 02/26/17 08:00 Pulse Ox 96 02/26/17 08:00 Weight - Most Recent: 238 lb 3.2 oz I&O - Last 24 Hours: Intake & Output 02/25/17 02/26/17 02/26/17 22:59 06:59 14:59 Intake Total 400 Output Total 900 Balance -500 Lab Results Last 24 Hours: Laboratory Results - last 24 hr 02/25/17 02/26/17 Range/Units 19:55 05:14 WBC 15.57 H (4.0-11.0) K/uL RBC 4.71 (4.30-5.90) M/uL Hgb 13.1 (12.0-16.0) g/dL Hct 39.0 (36.0-46.0) % MCV 82.8 (80.0-98.0) fL MCH 27.8 (27.0-32.0) pg MCHC 33.6 (31.0-37.0) g/dL RDW Std Deviation 39.8 (28.0-62.0) fl RDW Coeff of Marleni 13 (11.0-15.0) % Plt Count 268 (150-400) K/uL MPV 10.10 (7.40-12.00) fL Neut % (Auto) 78.0 (48.0-80.0) % Lymph % (Auto) 16.3 (16.0-40.0) % Liberty % (Auto) 5.1 (0.0-15.0) % Eos % (Auto) 0.4 (0.0-7.0) % Baso % (Auto) 0.2 (0.0-1.5) % Neut # (Auto) 12.1 H (1.4-5.7) K/uL Lymph # (Auto) 2.5 H (0.6-2.4) K/uL Liberty # (Auto) 0.8 (0.0-0.8) K/uL Eos # (Auto) 0.1 (0.0-0.7) K/uL Baso # (Auto) 0.0 (0.0-0.1) K/uL Nucleated RBC % 0.0 /100WBC Nucleated RBCs # 0 K/uL Ary species DNA NEGATIVE (NEGATIVE) Gardnerella DNA Probe POSITIVE H (NEGATIVE) Trichomonas DNA Probe NEGATIVE (NEGATIVE) Med Orders - Current: Current Medications Acetaminophen (Tylenol) 650 mg PO Q4H PRN PRN Reason: Pain (Mild 1-3)/fever Doxycycline Hyclate (Vibramycin) 100 mg PO Q12HR [facility] Last Admin: 02/26/17 10:04 Dose: 100 mg Cefoxitin Sodium 2 gm/ Premix 50 mls @ 100 mls/hr IV Q6H [facility] Last Admin: 02/26/17 06:03 Dose: 100 mls/hr Ibuprofen (Motrin) 800 mg PO Q6H [facility] Last Admin: 02/26/17 10:04 Dose: 800 mg Metronidazole (Metronidazole) 500 mg PO Q12HR [facility] Last Admin: 02/26/17 10:00 Dose: 500 mg Ondansetron HCl (Zofran Odt) 4 mg PO Q6H PRN PRN Reason: nausea, able to take PO Last Admin: 02/26/17 07:30 Dose: 4 mg Discontinued Medications Doxycycline Hyclate (Vibramycin) 100 mg PO ONETIME ONE Stop: 02/25/17 17:19 Last Admin: 02/25/17 17:39 Dose: 100 mg Sodium Chloride (Normal Saline) 1,000 mls @ 999 mls/hr IV STAT ONE Stop: 02/25/17 14:26 Last Admin: 02/25/17 13:57 Dose: 999 mls/hr Ceftriaxone Sodium/Dextrose 2 (gm/ Premix) 50 mls @ 100 mls/hr IV ONETIME ONE Stop: 02/25/17 17:46 Last Admin: 02/25/17 17:39 Dose: 100 mls/hr Iopamidol (Isovue Multipack-370 (76%)) 100 ml IVPUSH ONETIME STA Stop: 02/25/17 14:44 Last Admin: 02/25/17 14:44 Dose: 100 ml Ketorolac Tromethamine (Toradol) 30 mg IVPUSH ONETIME ONE Stop: 02/25/17 14:42 Last Admin: 02/25/17 14:56 Dose: 30 mg Morphine Sulfate (Morphine) 2 mg IVPUSH ONETIME ONE Stop: 02/25/17 16:20 Last Admin: 02/25/17 17:00 Dose: 2 mg Ondansetron HCl (Zofran) 8 mg IVPUSH ONETIME ONE Stop: 02/25/17 13:55 Last Admin: 02/25/17 13:59 Dose: 8 mg - Exam General: Alert, Oriented HEENT: Pupils Equal Lungs: Clear to Auscultation, Normal Respiratory Effort Cardiovascular: Regular Rate, Regular Rhythm GI/Abdominal Exam: Normal Bowel Sounds, Soft, Tender (mild RLQ), Abnormal Bowel Sounds. No: Guarding, Rigid, Rebound Extremities: Normal Inspection Skin: Warm Psy/Mental Status: Alert, Normal Affect, Normal Mood - Problem List & Annotations (1) Tubo-ovarian inflammatory disease SNOMED Code(s): 90357735 Code(s): N70.93 - SALPINGITIS AND OOPHORITIS, UNSPECIFIED Status: Acute Current Visit: Yes - Problem List Review Problem List Initiated/Reviewed/Updated: Yes - My Orders Last 24 Hours: My Active Orders 02/25/17 19:55 CHLAMYDIA AND GONORRHEA BY TMA Routine 02/25/17 20:59 Patient Status [ADT] Routine Ambulate [RC] ASDIRECTED May Shower [RC] ASDIRECTED Oxygen Therapy [RC] PRN VTE/DVT Education [RC] PER UNIT ROUTINE Vital Signs [RC] Q4H Acetaminophen [Tylenol] 650 mg PO Q4H PRN Ondansetron [Zofran ODT] 4 mg PO Q6H PRN Resuscitation Status Routine 02/25/17 21:00 Ibuprofen [Motrin] 800 mg PO Q6H 02/25/17 22:00 metroNIDAZOLE 500 mg PO Q12HR 02/26/17 06:00 Doxycycline [Vibramycin] 100 mg PO Q12HR cefOXitin [Mefoxin in Dextrose,Iso-Osm 2 GM/50 ML] 2 gm Premix Bag 1 bag IV Q6H 02/26/17 Breakfast Regular Diet [DIET] - Assessment Assessment:: 26 yo with suspected right tubo-ovarian abscess, has improved clinically on parental and oral antibiotics WBC down to 15 from 21 with 24 hours Still nauseous after oral antibiotics but has remained afebrile and stable BV on Wet mount- Metronidazole added to regimen last evening. Awaiting Genprobe results - Plan Plan:: Continue currrent management. Reassess this evening - if no further N/V and continues to remain stable,will discharge home on oral antibiotics( Doxycycline and Metronidazole) with follow up appointment in [facility] within the next 1- 2 weeks
[2017-02-26 16:15] VITALS: BP 125/79
--- NOTE | 2017-02-26 20:41 | PCM.SN ---
- Free Text/Narrative Note: Patient is doing much better, was able to tolerate her dinner. Pain is down to a 2 out of 10 on pain scale and she has remained afebrile. Will discharge home. Antibiotics Metronidazole and doxycycyline, both for 14 days have being to her pharmacy. Also prescribed antinausea and pain meds- NSIADs for PRN use. Will contact her on Tuesday with a follow up appointment date. Discharge instructions reviewed with patient, recommend pelvic rest until she completes her antibiotics.
== END 2017-02-26 21:20 | disposition home or self-care (01) ==
LOC: MW.ED 12:53 → MW.MS 17:20
PROVIDERS: ADMIT Obstetrics & Gynecology; ATTEND Obstetrics & Gynecology
DX: N70.93 Salpingitis and oophoritis, unspecified (principal); F17.210 Nicotine dependence, cigarettes, uncomplicated
CPT/HCPCS: 36415; 74177; 76830; 80053; 81001; 81025; 82150; 83690; 85025; 87086; 87480; 87491; 87510; 87591; 87660; 96361; 96365; 96375; 99285; A9270; J0696; J1885; J2270; J2405; J7040; Q9967; 96366; 99284; G0378

== ENCOUNTER 2017-11-08 06:48 | Day surgery (SDC) | payer OTHER ==
[2017-11-08] MEDS ORDERED: Midazolam 1 MG/ML 2 ML SDV ONE (06:57)
[2017-11-08] MEDS ORDERED: Propofol 200 MG/20 ML SDV ONE ×3 (06:57→08:24)
[2017-11-08] MEDS ORDERED: fentaNYL 100 MCG/2 ML SDV ONE ×2 (06:57→08:11)
[2017-11-08] MEDS ORDERED: Lidocaine 2% 5 ML SDV ONE (06:57)
--- NOTE | 2017-11-08 07:32 | PCM.PREANE ---
Preanesthetic Assessment - Anesthesia/Transfusion/Family Hx Anesthesia History: Prior Anesthesia Without Reaction Family History of Anesthesia Reaction: No Transfusion History: No Prior Transfusion(s) Intubation History: Unknown - Review of Systems General: No Symptoms Pulmonary: No Symptoms Cardiovascular: No Symptoms Gastrointestinal: No Symptoms Neurological: No Symptoms Other: Reports: None - Physical Assessment O2 Sat by Pulse Oximetry: 96 Respiratory Rate: 16 Vital Signs: Last Vital Signs Temp 36.2 C 11/08/17 07:04 Pulse 78 11/08/17 07:04 Resp 16 11/08/17 07:04 BP 114/77 11/08/17 07:04 Pulse Ox 96 11/08/17 07:04 Height: 1.78 m Weight: 99.79 kg ASA Class: 2 Mental Status: Alert & Oriented x3 Airway Class: Mallampati = 2 Dentition: Reports: Normal Dentition Thyro-Mental Finger Breadths: 3 Mouth Opening Finger Breadths: 3 ROM/Head Extension: Full Lungs: Clear to Auscultation, Normal Respiratory Effort Cardiovascular: Regular Rate, Regular Rhythm - Lab Values: Laboratory Last Values WBC 8.67 K/uL (4.0-11.0) 11/07/17 19:40 RBC 4.61 M/uL (4.30-5.90) 11/07/17 19:40 Hgb 12.8 g/dL (12.0-16.0) 11/07/17 19:40 Hct 38.0 % (36.0-46.0) 11/07/17 19:40 MCV 82.4 fL (80.0-98.0) 11/07/17 19:40 MCH 27.8 pg (27.0-32.0) 11/07/17 19:40 MCHC 33.7 g/dL (31.0-37.0) 11/07/17 19:40 RDW Std Deviation 41.1 fl (28.0-62.0) 11/07/17 19:40 RDW Coeff of Marleni 14 % (11.0-15.0) 11/07/17 19:40 Plt Count 239 K/uL (150-400) 11/07/17 19:40 MPV 9.80 fL (7.40-12.00) 11/07/17 19:40 Nucleated RBC % 0.0 /100WBC 11/07/17 19:40 Nucleated RBCs # 0 K/uL 11/07/17 19:40 HCG, Qual NEGATIVE (NEG) 11/07/17 19:40 - Allergies Allergies/Adverse Reactions: Allergies Allergy/AdvReac Type Severity Reaction Status Date / Time No Known Allergies Allergy Verified 11/04/17 08:50 - Blood Blood Available: No - Anesthesia Plan Pre-Op Medication Ordered: None - Acknowledgements Anesthesia Type Planned: MAC Pt an Appropriate Candidate for the Planned Anesthesia: Yes Alternatives and Risks of Anesthesia Discussed w Pt/Guardian: Yes Pt/Guardian Understands and Agrees with Anesthesia Plan: Yes PreAnesthesia Questionnaire HEENT History: Reports: None Cardiovascular History: Reports: None Respiratory History: Reports: None Gastrointestinal History: Reports: None Genitourinary History: Reports: None 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: Musculoskeletal History: Other Musculoskeletal History: hx fx wrist and foot Neurological History: Reports: None, Other (See Below) (h/o meningitis as child with no consequencise) Psychiatric History: Reports: None Endocrine/Metabolic History: Reports: None, Obesity/BMI 30+ Hematologic History: Reports: None Immunologic History: Reports: None Oncologic (Cancer) History: Reports: None Dermatologic History: Reports: None - Infectious Disease History Infectious Disease History: Reports: Chicken Pox - Past Surgical History Head Surgeries/Procedures: Reports: None HEENT Surgical History: Reports: Oral Surgery Other HEENT Surgeries/Procedures: wisdom teeth extraction GI Surgical History: Reports: Cholecystectomy Musculoskeletal Surgical History: Reports: None - SUBSTANCE USE Smoking Status *Q: Former Smoker Tobacco Use Within Last Twelve Months: Cigarettes Recreational Drug Use History: No - HOME MEDS Home Medications: Home Meds . [No Known Home Meds] 09/21/17 [History] - CURRENT (IN HOUSE) MEDS Current Meds: Current Medications Discontinued Medications Fentanyl (Sublimaze) Confirm Administered Dose 100 mcg .ROUTE .STK-MED ONE Stop: 11/08/17 06:58 Lidocaine (Xylocaine-Mpf 2%) Confirm Administered Dose 5 ml .ROUTE .STK-MED ONE Stop: 11/08/17 06:58 Midazolam HCl (Versed 1 Mg/Ml) Confirm Administered Dose 2 mg .ROUTE .STK-MED ONE Stop: 11/08/17 06:58 Propofol (Diprivan 20 Ml) Confirm Administered Dose 400 mg .ROUTE .STK-MED ONE Stop: 11/08/17 06:58
[2017-11-08] MEDS ORDERED: Glycopyrrolate 0.2 MG/ML SDV ONE ×2 (07:56→08:09)
[2017-11-08] MEDS ORDERED: Phenylephrine/Normal Saline 100 MCG/ML 10 ML Syringe ONE (08:11)
[2017-11-08] MEDS ORDERED: fentaNYL 100 MCG/2 ML SDV IVPUSH PRN (08:30)
--- NOTE | 2017-11-08 08:56 | PCM.OPNOTE ---
- General Post-Op/Procedure Note Date of Surgery/Procedure: 11/08/17 Operative Procedure(s): Loop electrosurgical excision procedure (LEEP) Findings: Large ectropion with HPV changes noted on colposcopy Pre Op Diagnosis: HGSIL pap, persistent CIN1 Post-Op Diagnosis: Same with pathology pending Anesthesia Technique: MAC, Other (see below) (Cervical block) Primary Surgeon: Valery Farnsworth Anesthesia Provider: Roman Moss Round Up Ring Hand: Tonya Jimenez Pathology: Anterior and posterior ectocervix Fluid Replacement, Intraop: 1,100 Output, Urine Amount: 0 EBL in mLs: 200 Complications: None known Condition: Good
[2017-11-08 09:40] VITALS: BP 108/64
--- NOTE | 2017-11-08 12:09 | OR ---
SURGEON: Valery Farnsworth M.D. 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 PROCEDURE: Loop electrode excisional procedure. SHERIFF: Lay CASSIDY. ANESTHESIA: MAC and cervical block. FLUIDS: 1100 mL crystalloid. ESTIMATED BLOOD LOSS: 200 mL. FINDINGS: Large ectropion with HPV changes. No discrete lesions on colposcopy. SPECIMENS: Anterior ectocervix labeled at 12 o'clock and posterior ectocervix labeled at 6 o'clock. COMPLICATIONS: None known. DISPOSITION: Stable to recovery. BRIEF HISTORY: This is a 27-year-old female, current Pap was high-grade KOKO. She has a history of an BOOM Pap with CIN1 on biopsy in 2013. She now has a high-grade KOKO Pap and colposcopy and biopsies were performed with moderate dysplasia CIN2 noted at the transformation zone at the 2 o'clock position. All other biopsies showed minimal histologic change and ECC was negative. She presents for loop electrode excisional procedure with risks discussed including bleeding, infection, injury to surrounding organs, and cervical incompetence. Understanding these risks, she does desire to proceed. DESCRIPTION OF PROCEDURE: With the patient in dorsal lithotomy position, under adequate IV sedation, the LEEP speculum was placed into the vagina. The cervix was treated with dilute acetic acid. Colposcopy was performed with findings as noted above. Essentially HPV changes, no discrete lesions. The cervix was then treated with Lugol solution to define the nonstaining area. She did have a large ectropion, therefore a large loop was utilized with a setting of 40 pure cut. The anterior ectocervix was excised and labeled at 6 o'clock, sent to Pathology. The posterior ectocervix was excised and sent to Pathology. Prior to proceeding, she did have a cervical block using a total of 10 mL of 1% lidocaine with epinephrine injected at 12, 5, and 7 o'clock position. Despite the epinephrine, she did have bleeding at the base of the LEEP including at least one area of apparent arterial bleeding within the cervical tissue not at the periphery. These were treated with coag ball setting at 60. There was an area at the 7 o'clock position where a [id number] suture was placed for hemostasis. Once the entire bed of the LEEP on the cervix had been treated with coagulation, Monsel's solution was applied and the cervix was hemostatic. All of the instruments removed from the vagina. Final sponge, needle, and instrument counts were reported as correct. There were no known complications. The patient was transferred to recovery in good condition. SHAJI MEDELLIN /[id number]
== END 2017-11-08 10:07 | disposition home or self-care (01) ==
LOC: MW.SDS 06:48
PROVIDERS: ATTEND Obstetrics & Gynecology
DX: N87.1 Moderate cervical dysplasia (principal); E66.9 Obesity, unspecified; Z68.34 Body mass index [BMI] 34.0-34.9, adult; Z87.891 Personal history of nicotine dependence
CPT/HCPCS: 36415; 57461; 84703; 85027; J2250; J2370; J2704; J3010; J3490; 88307

== ENCOUNTER 2019-01-08 12:50 | Emergency (ER) | payer SELFPAY ==
--- NOTE | 2019-01-08 13:14 | EDM.PDOC ---
ED HPI GENERAL MEDICAL PROBLEM - General Chief Complaint: Upper Extremity Injury/Pain Stated Complaint: INJURED RT WRIST Time Seen by Provider: 01/08/19 12:51 Source of Information: Reports: Patient History Limitations: Reports: No Limitations - History of Present Illness INITIAL COMMENTS - FREE TEXT/NARRATIVE: History of present illness: []Patient presents with right wrist pain. She was drinking last night does not recall how she didn't think she slipped on the ice falling forward and put her right hand out to catch her self. She awoke with pain in the wrist, denies any other pain or numbness or tingling. Declines any pain meds. Review of systems: As per history of present illness and below otherwise all systems reviewed and negative. Past medical history: As per history of present illness and as reviewed below otherwise noncontributory. Surgical history: As per history of present illness and as reviewed below otherwise noncontributory. Social history: No reported history of drug or alcohol abuse. Family history: As per history of present illness and as reviewed below otherwise noncontributory. Physical exam: General: Well developed, well nourished in NAD HEENT: Atraumatic, normocephalic, pupils reactive, negative for conjunctival pallor or scleral icterus, mucous membranes moist, throat clear, neck supple, nontender, trachea midline. Lungs: Clear to auscultation, breath sounds equal bilaterally, chest nontender. Heart: S1S2, regular, negative for clicks, rubs, or JVD. Abdomen: NABS, Soft, nondistended, nontender. Negative for masses or hepatosplenomegaly. Negative for costovertebral tenderness. Pelvis: Stable nontender. Genitourinary: Deferred. Rectal: Deferred. Extremities: Right wrist with no gross deformities, tenderness to palpation, spontaneously able to flex and extend wrist, elbow is able to move, negative for cords or calf pain. Neurovascular unremarkable. Neuro: Awake, alert, oriented. Cranial nerves II through XII unremarkable. Cerebellum unremarkable. Motor and sensory unremarkable throughout. Exam nonfocal. Skin:warm and dry Diagnostics: X-ray right wrist Therapeutics: Declines pain meds, thumb spica ED Course: Stable Impression: scaphoid fx Prescriptions: none Plan: Follow-up with orthopedics Definitive disposition and diagnosis as appropriate pending reevaluation and review of above. Right Wrist Pain Score (Numeric/FACES): 7 - Related Data Allergies Allergy/AdvReac Type Severity Reaction Status Date / Time No Known Allergies Allergy Verified 01/08/19 13:19 Home Meds: Home Meds . [No Known Home Meds] 09/21/17 [History] Past Medical History HEENT History: Reports: None Cardiovascular History: Reports: None Respiratory History: Reports: None Gastrointestinal History: Reports: None Genitourinary History: Reports: None [employer] History: Reports: Musculoskeletal History: Other Musculoskeletal History: hx fx wrist and foot Neurological History: Reports: None, Other (See Below) (h/o meningitis as child with no consequencise) Psychiatric History: Reports: None Endocrine/Metabolic History: Reports: None, Obesity/BMI 30+ Hematologic History: Reports: None Immunologic History: Reports: None Oncologic (Cancer) History: Reports: None Dermatologic History: Reports: None - Infectious Disease History Infectious Disease History: Reports: Chicken Pox - Past Surgical History Head Surgeries/Procedures: Reports: None HEENT Surgical History: Reports: Oral Surgery Other HEENT Surgeries/Procedures: wisdom teeth extraction GI Surgical History: Reports: Cholecystectomy Musculoskeletal Surgical History: Reports: None Social & Family History - Family History Family Medical History: Noncontributory - Caffeine Use Caffeine Use: Reports: Soda, Tea Review of Systems - Review of Systems Review Of Systems: See Below ED EXAM, GENERAL - Physical Exam Exam: See Below Course - Vital Signs Last Recorded V/S: Last Vital Signs Temp 97.8 F 01/08/19 13:19 Pulse 99 01/08/19 13:19 Resp 16 01/08/19 13:19 BP 143/89 H 01/08/19 13:19 Pulse Ox 97 01/08/19 13:19 - Orders/Labs/Meds Orders: Active Orders 24 hr Category Date Time Status Splinting [RC] ASDIRECTED Care 01/08/19 14:13 Ordered Departure - Departure Time of Disposition: 14:15 Disposition: Home, Self-Care 01 Condition: Good Clinical Impression: Scaphoid fracture, wrist, closed Qualifiers: Encounter type: initial encounter Scaphoid bone location: unspecified portion of scaphoid Fracture alignment: nondisplaced Laterality: right Qualified Code(s) : S62.001A - Unspecified fracture of navicular [scaphoid] bone of right wrist, initial encounter for closed fracture - Discharge Information *PRESCRIPTION DRUG MONITORING PROGRAM REVIEWED*: Not Applicable *COPY OF PRESCRIPTION DRUG MONITORING REPORT IN PATIENT IGOR: Not Applicable Referrals: PCP,None [Primary Care Provider] - Forms: ED Department Discharge Additional Instructions: The following information is given to patients seen in the emergency department who are being discharged to home. This information is to outline your options for follow-up care. We provide all patients seen in our emergency department with a follow-up referral. The need for follow-up, as well as the timing and circumstances, are variable depending upon the specifics of your emergency department visit. If you don't have a primary care physician on staff, we will provide you with a referral. We always advise you to contact your personal physician following an emergency department visit to inform them of the circumstance of the visit and for follow-up with them and/or the need for any referrals to a consulting specialist. The emergency department will also refer you to a specialist when appropriate. This referral assures that you have the opportunity for follow-up care with a specialist. All of these measure are taken in an effort to provide you with optimal care, which includes your follow-up. Under all circumstances we always encourage you to contact your private physician who remains a resource for coordinating your care. When calling for follow-up care, please make the office aware that this follow-up is from your recent emergency room visit. If for any reason you are refused follow-up, please contact the [facility] Emergency Department at and asked to speak to the emergency department charge nurse. Take meds as directed, follow up with your primary care physician, return to ER if symptoms worsen or change. [facility] [address], [address] [place] [address] - My Orders Last 24 Hours: My Active Orders 01/08/19 14:13 Splinting [RC] ASDIRECTED - Assessment/Plan Last 24 Hours: My Active Orders 01/08/19 14:13 Splinting [RC] ASDIRECTED
--- NOTE | 2019-01-08 14:04 | CR ---
EXAM DATE: 01/08/19 PATIENT'S AGE: 28 Right wrist: Three views of the right wrist were obtained. Comparison: No previous wrist study. Finding suspicious for navicular fracture are noted. Joint spaces are preserved. No additional bony abnormality is seen. Impression: 1. Findings suspicious for navicular fracture. MRI could be performed to confirm if clinically needed. 2. Right wrist study is otherwise unremarkable. Diagnostic code #3 Report Signed by Proxy. [facility]
[2019-01-08 14:42] VITALS: BP 130/82; PULSE 86
== END 2019-01-08 14:43 | disposition home or self-care (01) ==
LOC: MW.ED 12:50
DX: S62.001A Unspecified fracture of navicular [scaphoid] bone of right wrist, initial encounter for closed fracture (principal); W00.0XXA Fall on same level due to ice and snow, initial encounter
CPT/HCPCS: 29125; 73110-26-RT; 73110-RT; 99283; 99283-25

== ENCOUNTER 2022-04-12 13:12 | Emergency (ER) | payer MEDICAID ==
[2022-04-12 13:39] VITALS: BP 110/80; PULSE 101
== END 2022-04-12 15:25 | disposition home or self-care (01) ==
LOC: MW.ED 13:12
DX: M25.462 Effusion, left knee (principal); E66.9 Obesity, unspecified; Z68.29 Body mass index [BMI] 29.0-29.9, adult
CPT/HCPCS: 73562-26-LT; 73562-LT; 99283

== ENCOUNTER 2024-08-23 00:07 | Inpatient (IN) | payer MEDICAID ==
[2024-08-23] MEDS ORDERED: Terbutaline 1 MG/ML SDV SUBCUT PRN (00:34)
[2024-08-23] MEDS ORDERED: Water For Irrigation,Sterile 1,000 ML Container IRR PRN (00:34)
[2024-08-23] MEDS ORDERED: Misoprostol 25 MCG (1/4 of 100 MCG) Tab VAG PRN (00:34)
[2024-08-23] MEDS ORDERED: Sodium Chloride 0.9% 10 ML Syringe FLUSH PRN (00:34)
[2024-08-23] MEDS ORDERED: Butorphanol 1 MG/ML SDV IVPUSH PRN (00:34)
[2024-08-23] MEDS ORDERED: Ondansetron 4 MG/2 ML SDV IVPUSH PRN (00:34)
[2024-08-23] MEDS ORDERED: Misoprostol 25 MCG (1/4 of 100 MCG) Tab PO PRN (00:34)
[2024-08-23] MEDS ORDERED: Sodium Chloride 0.9% 2.5 ML Syringe FLUSH PRN (00:34)
[2024-08-23] MEDS ORDERED: Sodium Chloride 0.9% 20 ML SDV IV PRN (00:34)
[2024-08-23] MEDS: Lactated Ringers 1,000 ML IV SCH ×2 (01:05→08:14)
[2024-08-23 01:28] LABS: HEMATOCRIT 29.8 % (37.0-47.0); HEMOGLOBIN 9.8 g/dL (12.0-16.0); MEAN CORPUSCULAR HEMOGLOBIN 24.9 pg (28.0-32.0); MEAN CORPUSCULAR HGB CONC 32.9 g/dL (32.0-36.0); MEAN CORPUSCULAR VOLUME 75.8 fL (83.0-99.0); PLATELET COUNT,PLT 232 K/uL (150-400); RED BLOOD CELL COUNT 3.93 M/uL (4.10-5.30); WHITE BLOOD CELL COUNT,WBC 9.77 K/uL (3.9-11.3)
[2024-08-23] MEDS: Oxytocin/0.9 % Sodium Chloride 30 UNIT/500 ML BAG IV SCH ×2 (01:46→04:51)
[2024-08-23] MEDS ORDERED: dexmedeTOMIDine HCl 200 MCG/2 ML SDV ONE (02:23)
[2024-08-23] MEDS ORDERED: Phenylephrine HCl In 0.9% NaCl 1 MG/10 ML Syringe ONE (02:23)
[2024-08-23] MEDS ORDERED: Ropivacaine HCl/PF 200 ML ONE (02:23)
[2024-08-23] MEDS: Ropivacaine HCl/PF 400 MG in Premix Bag 1 BAG EPIDUR SCH (02:25)
[2024-08-23] MEDS ORDERED: Phenylephrine HCl In 0.9% NaCl 1 MG/10 ML Syringe IVPUSH PRN (02:27)
[2024-08-23] MEDS ORDERED: ePHEDrine 50 MG/ML SDV IVPUSH PRN (02:27)
[2024-08-23] MEDS ORDERED: dexmedeTOMIDine HCl 200 MCG/2 ML SDV EPIDUR SCH (02:30)
[2024-08-23] MEDS: Methylergonovine 0.2 MG/1 ML Amp IM PRN (04:19)
[2024-08-23] MEDS: Misoprostol 200 MCG Tab RECTAL PRN (04:26)
[2024-08-23] MEDS: Tranexamic Acid in NACL,ISO-OS 1,000 MG in Premix Bag 1 BAG IV ONE ×2 (04:28→05:00)
[2024-08-23] MEDS: Carboprost Tromethamine 250 MCG/1 mL Vial IM PRN (04:38)
[2024-08-23] MEDS: Lidocaine 1% 50 ML MDV INJECT PRN (04:51)
[2024-08-23 05:02] LABS: HEMATOCRIT 30.3 % (37.0-47.0); MEAN CORPUSCULAR HEMOGLOBIN 25.3 pg (28.0-32.0); MEAN CORPUSCULAR VOLUME 76.7 fL (83.0-99.0); PLATELET COUNT,PLT 215 K/uL (150-400); RED BLOOD CELL COUNT 3.95 M/uL (4.10-5.30); WHITE BLOOD CELL COUNT,WBC 12.64 K/uL (3.9-11.3)
[2024-08-23 05:22] LABS: A/G RATIO 0.7 (0.9-1.6); ALBUMIN 2.7 g/dL (3.4-5.0); BILIRUBIN TOTAL 0.2 mg/dL (0.2-1.0); CALCIUM 8.7 mg/dL (8.5-10.1); CARBON DIOXIDE,CO2 19.5 mmol/L (21.0-32.0); CREATININE 0.7 mg/dL (0.6-1.0); EST CRCL DRUG DOSING (CG) 122.46 mL/min; POTASSIUM,K 3.9 mmol/L (3.5-5.1); PROTEIN TOTAL,TP 6.4 g/dL (6.4-8.2)
[2024-08-23] MEDS: Acetaminophen 500 MG Tab PO PRN (05:26)
[2024-08-23] MEDS: Atropine/Diphenoxylate 0.025-2.5 MG Tab PO PRN (05:35)
[2024-08-23 05:36] LABS: FIBRINOGEN 533 mg/dL (187-446); INR < 0.93 (0.86-1.11); PTT,PARTIAL THROMBOPLSTIN TIME 22.6 SEC (23.9-30.7)
[2024-08-23] MEDS ORDERED: Aluminum Hydroxide/Magnesium Hydroxide/Simethicone Susp 30 ML Cup PO PRN (05:52)
[2024-08-23] MEDS ORDERED: Famotidine 20 MG Tab PO PRN (05:52)
[2024-08-23 06:04] LABS: PH,UMBILICAL ARTERIAL 7.28 (7.18-7.38); PH,UMBILICAL VENOUS 7.4 (7.25-7.45)
[2024-08-23] MEDS: Lanolin 100% Cream 7 GM Tube TOP PRN (06:45)
[2024-08-23] MEDS: Witch Hazel Medicated Pads 40/Jar TOP PRN (06:45)
[2024-08-23] MEDS: Benzocaine/Menthol 20%-0.5% Spray 78 GM Cannister TOP PRN (06:45)
[2024-08-23] MEDS: Ibuprofen 800 MG Tab PO PRN (09:07)
[2024-08-23 10:48] LABS: BASOPHILS ABSOLUTE AUTO 0.04 K/uL (0.00-0.20); BASOPHILS PERCENT AUTO 0.3 % (0.0-1.0); EOSINOPHILS ABSOLUTE AUTO 0.02 K/uL (0.00-0.45); EOSINOPHILS PERCENT AUTO 0.1 % (0.0-6.0); HEMATOCRIT 28.5 % (37.0-47.0); HEMOGLOBIN 9.5 g/dL (12.0-16.0); IMMATURE GRAN ABSOLUTE AUTO 0.07 K/uL (0.00-0.05); IMMATURE GRAN PERCENT AUTO 0.5 % (0.0-0.4); LYMPHOCYTES ABSOLUTE AUTO 1.47 K/uL (1.00-4.80); MEAN CORPUSCULAR HEMOGLOBIN 25.3 pg (28.0-32.0); MEAN CORPUSCULAR HGB CONC 33.3 g/dL (32.0-36.0); MEAN PLATELET VOLUME 9.6 fL (9.4-12.3); MONOCYTES ABSOLUTE AUTO 1.29 K/uL (0.00-0.80); MONOCYTES PERCENT AUTO 8.8 % (0.0-8.0); NEUTROPHILS ABSOLUTE AUTO 11.85 K/uL (1.80-7.70); NEUTROPHILS PERCENT AUTO 80.3 % (41.0-71.0); PLATELET COUNT,PLT 207 K/uL (150-400); RED BLOOD CELL COUNT 3.75 M/uL (4.10-5.30); WHITE BLOOD CELL COUNT,WBC 14.74 K/uL (3.9-11.3)
[2024-08-23 17:20] LABS: HEMATOCRIT 26.5 % (37.0-47.0); HEMOGLOBIN 8.8 g/dL (12.0-16.0); MEAN CORPUSCULAR HEMOGLOBIN 25.5 pg (28.0-32.0); MEAN CORPUSCULAR HGB CONC 33.2 g/dL (32.0-36.0); MEAN CORPUSCULAR VOLUME 76.8 fL (83.0-99.0); MEAN PLATELET VOLUME 9.6 fL (9.4-12.3); PLATELET COUNT,PLT 198 K/uL (150-400); RED BLOOD CELL COUNT 3.45 M/uL (4.10-5.30); WHITE BLOOD CELL COUNT,WBC 12.54 K/uL (3.9-11.3)
[2024-08-23] MEDS: Sodium Ferric Gluconate Cmplex 125 MG in Sodium Chloride 0.9% 100 ML IV ONE (17:24)
[2024-08-23] MEDS: Iron Polysaccharides Complex 150 MG Cap PO SCH (21:14)
[2024-08-24 06:16] LABS: BASOPHILS ABSOLUTE AUTO 0.03 K/uL (0.00-0.20); BASOPHILS PERCENT AUTO 0.3 % (0.0-1.0); EOSINOPHILS ABSOLUTE AUTO 0.13 K/uL (0.00-0.45); EOSINOPHILS PERCENT AUTO 1.3 % (0.0-6.0); HEMATOCRIT 26.3 % (37.0-47.0); HEMOGLOBIN 8.5 g/dL (12.0-16.0); IMMATURE GRAN ABSOLUTE AUTO 0.08 K/uL (0.00-0.05); IMMATURE GRAN PERCENT AUTO 0.8 % (0.0-0.4); LYMPHOCYTES ABSOLUTE AUTO 1.75 K/uL (1.00-4.80); LYMPHOCYTES PERCENT AUTO 17.4 % (24.0-44.0); MEAN CORPUSCULAR HEMOGLOBIN 24.9 pg (28.0-32.0); MEAN CORPUSCULAR HGB CONC 32.3 g/dL (32.0-36.0); MEAN CORPUSCULAR VOLUME 77.1 fL (83.0-99.0); MEAN PLATELET VOLUME 9.7 fL (9.4-12.3); MONOCYTES ABSOLUTE AUTO 0.74 K/uL (0.00-0.80); MONOCYTES PERCENT AUTO 7.4 % (0.0-8.0); NEUTROPHILS ABSOLUTE AUTO 7.33 K/uL (1.80-7.70); NEUTROPHILS PERCENT AUTO 72.8 % (41.0-71.0); PLATELET COUNT,PLT 185 K/uL (150-400); RED BLOOD CELL COUNT 3.41 M/uL (4.10-5.30); WHITE BLOOD CELL COUNT,WBC 10.06 K/uL (3.9-11.3)
[2024-08-24] MEDS ORDERED: Sodium Ferric Gluconate Cmplex 125 MG in Sodium Chloride 0.9% 100 ML IV SCH (09:00)
[2024-08-24] MEDS: Sodium Ferric Gluconate Cmplex 125 MG in Sodium Chloride 0.9% 100 ML IV SCH (12:07)
[2024-08-24] MEDS: Docusate Sodium 100 MG Cap PO PRN (12:14)
[2024-08-25 08:44] VITALS: BP 103/63; PULSE 82
[2024-08-25] MEDS: Simethicone 80 MG Tab.Chew PO PRN (09:28)
== END 2024-08-25 10:15 | disposition home or self-care (01) | DRG 806 ==
LOC: MW.OBCHECK 00:07 → MW.OB 00:12 → MW.OBCHECK 00:34 → MW.OB 00:34 → OBSVTOIN 04:11 → MW.OB 08:11
PROVIDERS: ADMIT Obstetrics & Gynecology; ATTEND Obstetrics & Gynecology
PROC: 10E0XZZ Delivery of Products of Conception, External Approach (ICD-10-PCS; principal; 2024-08-23)
PROC: 0UQMXZZ Repair Vulva, External Approach (ICD-10-PCS; 2024-08-23)
PROC: 3E0R3BZ Introduction of Anesthetic Agent into Spinal Canal, Percutaneous Approach (ICD-10-PCS; 2024-08-23)
PROC: 00HU33Z Insertion of Infusion Device into Spinal Canal, Percutaneous Approach (ICD-10-PCS; 2024-08-23)
DX: O99.62 Diseases of the digestive system complicating childbirth (principal); D62 Acute posthemorrhagic anemia; Z37.0 Single live birth; K21.9 Gastro-esophageal reflux disease without esophagitis; O99.02 Anemia complicating childbirth; O69.81X0 Labor and delivery complicated by cord around neck, without compression, not applicable or unspecified; O71.82 Other specified trauma to perineum and vulva; O72.1 Other immediate postpartum hemorrhage; Z3A.39 39 weeks gestation of pregnancy; Z90.49 Acquired absence of other specified parts of digestive tract; Z98.890 Other specified postprocedural states
CPT/HCPCS: 01967; 36415; 59025; 59409; 80053; 82803; 84112; 85025; 85027; 85384; 85610; 85730; 86592; 86850; 86900; 86901; 86920; A9270-GY; J2003; J2210; J2590; J2795; J2916; J3490; J7120